=== PATIENT | female | born 1930 | race Caucasian/White ===

== ENCOUNTER 2017-10-12 11:07 | Outpatient (CLI) | payer MEDICARE, BC ==
--- NOTE | 2017-10-12 11:56 | RAD ---
RIGHT FORELEG RADIOGRAPHS TWO VIEWS: Date: 10-12-17 Provided Clinical History: Pain status post injury. FINDINGS: There is no evidence for fracture or other acute osseous abnormality. If there is persistent clinical concern, conservative management and follow up imaging are advised. IMPRESSION: As above. POS: [facility]
== END 2017-10-12 11:08 | disposition home or self-care (01) ==
LOC: RAD-FRANK 11:07
PROVIDERS: ATTEND Nurse Practitioner Family
DX: M79.604 Pain in right leg (principal)

== ENCOUNTER 2017-10-15 10:21 | Inpatient (IN) | payer MEDICARE, BC ==
[2017-10-15] MEDS ORDERED: Piperacillin/Tazobactam 3.375 GM VIAL ONE (10:47)
[2017-10-15] MEDS ORDERED: Lidocaine 1% w/Epinephrine 1:100K 20 ML VIAL ONE (10:48)
[2017-10-15 11:14] LABS: Bilirubin Negative (Negative); Blood, Urine Small (Negative); Clarity Clear (Clear); Glucose, Urine (Dipstick) Negative (Negative); Leukocyte Negative (Negative); Nitrite Negative (Negative); Protein, Urine (Dipstick) Negative (Neg-Trace); Urobilinogen 0.2 mg/dL (0.2-1.0)
[2017-10-15 11:16] LABS: #Basophils 0.1 thou/uL (0.0-0.2); #Lymphocytes 1.4 thou/uL (1.20-3.40); #Monocytes 0.6 thou/uL (0.11-0.59); #Neutrophils 5.7 thou/uL (1.40-6.50); %Basophils 0.8 % (0.0-1.0); %Eosinophils 0.2 % (0.0-10.0); %Lymphocytes 18.3 % (21.0-51.0); %Monocytes 7.7 % (0.0-10.0); %Neutrophils 73.1 % (42.0-75.0); Hemoglobin 14.9 g/dL (12.0-16.0); Mean Corpuscular HGB CONC 34.8 g/dL (32.0-36.0); Mean Corpuscular Hemoglobin 29.5 pg (27.0-31.0); Mean Corpuscular Volume 84.7 fL (78.0-98.0); Mean Platelet Volume 7.5 fL (7.4-10.4); Platelet Count 250 thou/uL (130-400); RBC Distribution Width 11.6 % (11.5-14.5); Red Blood Cell (RBC) Count 5.06 mill/uL (4.20-5.40); White Blood Cell (WBC) Count 7.8 thou/uL (4.8-10.8)
[2017-10-15 11:17] LABS: INR-International Normal Ratio 1.6; PTT 63.6 SEC (22.9-36.1); Prothrombin Time 18.9 SEC (12.0-14.7)
[2017-10-15 11:22] LABS: Anion Gap 14 mmol/L (10-20); BUN (Urea Nitrogen) 13 mg/dL (9.8-20.1); Bacteria/HPF Rare-Few HPF (None Seen); Calc. Creatinine Clearance 0 mL/min (70-130); Calcium 10.2 mg/dL (7.8-10.44); Carbon Dioxide 25 mmol/L (23-31); Chloride 103 mmol/L (98-107); Estimated GFR-MDRD 78; Glucose 121 mg/dL (83-110); Potassium 3.4 mmol/L (3.5-5.1); Sodium 139 mmol/L (136-145); WBC/HPF None Seen HPF (0-3)
[2017-10-15] MEDS ORDERED: Ondansetron ODT 4 MG TAB SL PRN (13:23)
[2017-10-15] MEDS ORDERED: Acetaminophen 325 MG TAB PO PRN (13:23)
[2017-10-15] MEDS ORDERED: HYDROcodone/Acetaminophen 5/325 mg Tablet PO PRN ×2 (13:23)
[2017-10-15] MEDS ORDERED: Ondansetron HCl/PF 4 MG/2 ML Vial IVP PRN (13:23)
[2017-10-15 13:43] VITALS: BMI 31.8
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
[2017-10-15] MEDS ORDERED: Bisacodyl 5 MG TAB PO PRN (14:29)
[2017-10-15] MEDS ORDERED: Ondansetron ODT 4 MG TAB PO PRN (14:29)
[2017-10-15] MEDS ORDERED: Piperacillin/Tazobactam 3.375 GM in Sodium Chloride 0.9% 100 ML IVPB SCH (18:00)
[2017-10-15] MEDS: Piperacillin/Tazobactam 3.375 GM in Sodium Chloride 0.9% 100 ML IVPB SCH (18:26)
[2017-10-15] MEDS: Acetaminophen 325 MG TAB PO PRN (19:06)
[2017-10-15] MEDS: Dabigatran 150 mg Capsule PO SCH (21:17)
[2017-10-16] MEDS: Piperacillin/Tazobactam 3.375 GM in Sodium Chloride 0.9% 100 ML IVPB SCH ×5 (00:33→23:17)
[2017-10-16] MEDS: Vancomycin HCl 1 GM in Premix Bag 1 BAG IVPB SCH ×2 (00:33→11:36)
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
[2017-10-16 05:38] LABS: #Eosinphils 0.1 thou/uL (0.0-0.7); #Lymphocytes 1.4 thou/uL (1.20-3.40); #Monocytes 0.6 thou/uL (0.11-0.59); #Neutrophils 3.9 thou/uL (1.40-6.50); %Basophils 0.3 % (0.0-1.0); %Eosinophils 1.7 % (0.0-10.0); %Lymphocytes 23.1 % (21.0-51.0); %Monocytes 9.9 % (0.0-10.0); Hemoglobin 13.6 g/dL (12.0-16.0); Mean Corpuscular HGB CONC 34.4 g/dL (32.0-36.0); Mean Corpuscular Hemoglobin 31.1 pg (27.0-31.0); Mean Corpuscular Volume 90.6 fL (78.0-98.0); Mean Platelet Volume 7.5 fL (7.4-10.4); Platelet Count 241 thou/uL (130-400); RBC Distribution Width 12.2 % (11.5-14.5); Red Blood Cell (RBC) Count 4.36 mill/uL (4.20-5.40)
[2017-10-16] MEDS: Dabigatran 150 mg Capsule PO SCH ×2 (08:01→21:05)
[2017-10-16] MEDS: Acetaminophen 325 MG TAB PO PRN (08:01)
[2017-10-16] MEDS ORDERED: Enoxaparin Sodium 40 MG/0.4 ML SYRINGE SC SCH (09:00)
--- NOTE | 2017-10-16 12:49 | ADD-PRG ---
DATE OF SERVICE: 10/16/2017 This is an addendum to the note of Dr. Shelley Davis. Ms. Fuentes right lower extremity looks and feels much better. She has some small degree of pedal catherine a, but otherwise her leg hematoma seems to be improved and there is no evidence of cellulitis.
[2017-10-16 23:33] LABS: Vancomycin, Trough 12.3 ug/mL
[2017-10-16] MEDS ORDERED: Vancomycin HCl 1.25 GM in Sodium Chloride 0.9% 250 ML 250 ML IVPB SCH (23:59)
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
[2017-10-17] MEDS: Piperacillin/Tazobactam 3.375 GM in Sodium Chloride 0.9% 100 ML IVPB SCH (05:36)
[2017-10-17] MEDS: Acetaminophen 325 MG TAB PO PRN (09:11)
[2017-10-17] MEDS: Dabigatran 150 mg Capsule PO SCH (09:12)
[2017-10-17 12:31] VITALS: BP 122/73; TEMP 97.8
--- NOTE | 2017-10-17 13:33 | ADD-PRG ---
DATE OF SERVICE: 10/17/2017 Please add this as an addendum to the note of Dr. Shelley Davis. The area of cellulitis and hematoma on Mrs. Fuentes' right lower extremity is much improved. She will be discharged today.
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
[2017-10-17] MEDS ORDERED: Vancomycin HCl 1.25 GM in Sodium Chloride 0.9% 250 ML 250 ML IVPB SCH (23:59)
== END 2017-10-17 12:51 | disposition home or self-care (01) | DRG 603 ==
LOC: SCSER 10:21 → SJJU 12:38
PROVIDERS: ADMIT Family Medicine; ATTEND Family Medicine
DX: L03.115 Cellulitis of right lower limb (principal); T79.8XXA Other early complications of trauma, initial encounter; I10 Essential (primary) hypertension; S80.11XA Contusion of right lower leg, initial encounter; I48.2 Chronic atrial fibrillation; R31.9 Hematuria, unspecified; V89.2XXA Person injured in unspecified motor-vehicle accident, traffic, initial encounter
CPT/HCPCS: 10140; 36415; 80048; 80202; 81003; 81015; 85025; 85610; 85730; 87040; 87086; 96365; 96375; J2001; J2543; J3370; J7050

== ENCOUNTER 2017-10-25 11:50 | Outpatient (CLI) | payer MEDICARE, BC | END 2017-10-25 11:51 | disposition home or self-care (01) | LOC: BICRAD 11:50 | PROVIDERS: ATTEND Family Medicine | DX: S79.911A Unspecified injury of right hip, initial encounter (principal); S89.91XA Unspecified injury of right lower leg, initial encounter; S99.911A Unspecified injury of right ankle, initial encounter; M25.552 Pain in left hip; M25.561 Pain in right knee; M25.571 Pain in right ankle and joints of right foot; M16.11 Unilateral primary osteoarthritis, right hip; M25.471 Effusion, right ankle ==

== ENCOUNTER 2018-11-30 12:33 | Emergency (ER) | payer MEDICARE, BC ==
[2018-11-30 13:24] LABS: #Lymphocytes 0.5 thou/uL (1.20-3.40); #Monocytes 0.3 thou/uL (0.11-0.59); #Neutrophils 7.9 thou/uL (1.40-6.50); %Basophils 0.2 % (0.0-1.0); %Eosinophils 0.4 % (0.0-10.0); %Lymphocytes 6.2 % (21.0-51.0); %Monocytes 2.9 % (0.0-10.0); %Neutrophils 90.4 % (42.0-75.0); Hemoglobin 14.3 g/dL (12.0-16.0); Mean Corpuscular HGB CONC 33.9 g/dL (32.0-36.0); Mean Corpuscular Hemoglobin 31.7 pg (27.0-31.0); Mean Corpuscular Volume 93.6 fL (78.0-98.0); Mean Platelet Volume 7.5 fL (7.4-10.4); Platelet Count 227 thou/uL (130-400); RBC Distribution Width 12.9 % (11.5-14.5); Red Blood Cell (RBC) Count 4.49 mill/uL (4.20-5.40); White Blood Cell (WBC) Count 8.7 thou/uL (4.8-10.8)
[2018-11-30 13:39] LABS: ALT (SGPT) 21 U/L (8-55); AST (SGOT) 16 U/L (5-34); Albumin 3.9 g/dL (3.4-4.8); Alkaline Phosphatase 111 U/L (40-150); Anion Gap 10 mmol/L (10-20); BUN (Urea Nitrogen) 13 mg/dL (9.8-20.1); Bilirubin, Total 0.7 mg/dL (0.2-1.2); Calc. Creatinine Clearance 0 mL/min (70-130); Calcium 10.1 mg/dL (7.8-10.44); Carbon Dioxide 27 mmol/L (23-31); Chloride 100 mmol/L (98-107); Estimated GFR-MDRD 74; Globulin 2.8 g/dL (2.4-3.5); Glucose 127 mg/dL (83-110); Potassium 3.3 mmol/L (3.5-5.1); Protein, Total 6.7 g/dL (6.0-8.3); Sodium 134 mmol/L (136-145)
--- NOTE | 2018-11-30 14:09 | ULT ---
US Venous Doppler Bilat History: Lower extremity edema Comparison: None. Findings: Real-time grayscale, color, and spectral analysis of the bilateral lower extremity venous s ystem was performed. The common femoral, femoral, proximal portions greater saphenous and deep femoral veins as well as the popliteal and posterior tibial veins were interrogated. Normal flow, augmentation, and compression. Impression: No deep venous thrombosis.
--- NOTE | 2018-12-01 16:00 | EKG ---
Test Reason : LEF SWELLING Blood Pressure : / mmHG Vent. Rate : 077 BPM Atrial Rate : 096 BPM P-R Int : 000 ms QRS Dur : 102 ms QT Int : 408 ms P-R-T Axes : 000 -44 025 degrees QTc Int : 461 ms Atrial fibrillation with premature ventricular or aberrantly conducted complexes Left axis deviation Incomplete right bundle branch block Inferior infarct , age undetermined Anteroseptal infarct , age undetermined Abnormal ECG Confirmed by DAHIANA CHAUDHARY, CALI ([id number]), video editor NANCY DURAN ([id number]) on 12/01/2018 3:59:58 PM Referred By: Confirmed By:CALI TALBOT MD
== END 2018-11-30 14:48 | disposition home or self-care (01) ==
LOC: ERS 12:33
DX: M79.89 Other specified soft tissue disorders (principal); R21 Rash and other nonspecific skin eruption; I10 Essential (primary) hypertension; I48.91 Unspecified atrial fibrillation; Z79.899 Other long term (current) drug therapy
CPT/HCPCS: 36415; 80053; 83880; 84484; 85025; 93005; 93970

== ENCOUNTER 2019-07-22 09:38 | Outpatient (CLI) | payer MEDICARE, BC ==
[~2019-07-22 09:38] MED LIST: Iopamidol 370 76% 100 ML VIAL ONE
--- NOTE | 2019-07-22 11:14 | CT ---
CT ABDOMEN AND PELVIS WITH IV CONTRAST: Date: 07/22/2019 PROVIDED CLINICAL HISTORY: Umbilical hernia. FINDINGS: No comparisons. The visualized lung bases are free of significant opacity. The liver, spleen, pancreas, kidneys, and adrenal glands demonstrate an unremarkable CT appearance. G allstones are noted. There is no bowel dilatation, intraperitoneal fat stranding, free intraperitoneal fluid, or free intr aperitoneal air apparent. Sigmoid and descending colonic diverticulosis are demonstrated without CT e vidence for diverticulitis. The appendix appears normal. There is increased density involving the umbilical fat with reticulation of the surrounding subcutane ous adipose layer and thickening of the overlying skin in this region. The osseous structures demonstrate no concerning lytic or blastic lesions. Lumbar spine degenerative changes are seen. Extensive vascular calcifications are seen. IMPRESSION: 1. Findings suggesting umbilical/periumbilical cellulitis. No evidence for abscess or bowel-containi ng hernia. 2. Chronic findings as above. POS: [facility]
== END 2019-07-22 09:39 | disposition home or self-care (01) ==
LOC: BICCT 09:38
PROVIDERS: ATTEND Family Medicine
DX: K42.9 Umbilical hernia without obstruction or gangrene (principal); I70.90 Unspecified atherosclerosis; K80.20 Calculus of gallbladder without cholecystitis without obstruction; K57.30 Diverticulosis of large intestine without perforation or abscess without bleeding; M47.816 Spondylosis without myelopathy or radiculopathy, lumbar region; R23.4 Changes in skin texture
CPT/HCPCS: 74177; 82565; Q9967